=== PATIENT | female | born 1985 | race Caucasian/White ===

== ENCOUNTER 2017-03-29 15:09 | Emergency (ER) | payer MEDICAID ==
[~2017-03-29] VITALS: Ht 157.5 cm; Wt 81.6 kg
[2017-03-29] MEDS ORDERED: MELO15TA23 PO (15:59)
[2017-03-29] MEDS ORDERED: TRAM50TA PO (16:00)
[2017-03-29] MEDS ORDERED: PANT20TA2 PO (16:01)
[2017-03-29] MEDS ORDERED: GABA-586 PO (16:01)
[2017-03-29] MEDS ORDERED: DULO60CA6 PO (16:04)
[2017-03-29] MEDS ORDERED: PRAZ1CAP2 PO (16:05)
[2017-03-29] MEDS ORDERED: SUCR1TAB PO (16:07)
[2017-03-29 16:25] LABS: BASO % 1 % (0-3); EOS % 2 % (0-3); HEMATOCRIT 34.5 % (36.0-47.0); HEMOGLOBIN 11.7 g/dL (12.0-15.5); LYMPH # 1.5 x10^3/uL (1.0-4.8); LYMPH % 20 % (24-48); MEAN CORPUSCULAR HEMOGLOBIN 29 pg (25-35); MEAN CORPUSCULAR HGB CONC 34 g/dL (31-37); MEAN CORPUSCULAR VOLUME 84 fL (79-100); MONO % 7 % (0-9); NEUT % 70 % (31-73); PLATELET COUNT 358 x10^3/uL (140-400); RED BLOOD COUNT 4.09 x10^6/uL (3.50-5.40); RED CELL DISTRIBUTION WIDTH 14.7 % (11.5-14.5); WHITE BLOOD COUNT 7.7 x10^3/uL (4.0-11.0)
[2017-03-29 16:41] LABS: CALCIUM 8.8 mg/dL (8.5-10.1); CREATININE 0.8 mg/dL (0.6-1.0); GFR 84.8
[2017-03-29 16:54] LABS: ALBUMIN 3.3 g/dL (3.4-5.0); ALBUMIN/GLOBULIN RATIO 0.8 (1.0-1.7); TOTAL BILIRUBIN 0.4 mg/dL (0.2-1.0); TOTAL PROTEIN 7.2 g/dL (6.4-8.2)
--- NOTE | 2017-03-29 17:39 | RAD ---
Pelvic ultrasound to include transabdominal and transvaginal imaging 03/29/2017 CLINICAL HISTORY: Low abdominal pain with heavy vaginal bleeding. TECHNIQUE: Using the distended urinary bladder as a sonographic window, a real-time ultrasound examination of the pelvis was performed. Additionally in an attempt to better evaluate the uterus and adnexa, a transvaginal ultrasound study was performed. Multiple images were obtained. FINDINGS: The uterus is within normal limits in size. It measures 10.6 x 5.7 x 5.6 cm in longitudinal, transverse, and AP dimensions. The endometrial echo complex is prominent measuring 2.2 cm in thickness. It is slightly heterogeneous. No focal abnormality of the uterus is seen. The right ovary is normal in size. It measures 5.1 x 3.5 x 2.4 cm in size. A 1.5 cm dominant follicle seen within the right ovary. The left ovary is mildly enlarged. It measures 7.0 x 4.3 x 3.1 cm in size. Within the left ovary an oval-shaped anechoic structure with internal echoes is seen which measures 2.5 cm in greatest diameter. This likely represents a hemorrhagic cyst. A moderate amount of free fluid is seen within the pelvis. IMPRESSION: 2.5 cm probable hemorrhagic cyst within the left ovary. Moderate amount of free fluid is seen within the pelvis. Electronically signed by: Tien Collins MD (03/29/2017 5:36 PM) [facility]
[2017-03-29] MEDS ORDERED: fentaNYL PF VIAL 100 MCG/2 ML VIAL IV ONE (18:30)
[2017-03-29] MEDS ORDERED: ONDANSETRON PF 4 MG/2 ML VIAL. IV ONE (18:45)
[2017-03-29 18:46] VITALS: BP 144/90
--- NOTE | 2017-03-29 23:32 | PHYS DOC ---
Past Medical History Past Medical History: Anxiety, Arthritis, Fibromyalgia Additional Past Medical Histor: NEUROPATHY, THORACIC OUTLET SYNDROME Past Surgical History: Appendectomy, Cholecystectomy, Tubal ligation Additional Information: 0.5 PPD Alcohol Use: None Drug Use: None Adult General Chief Complaint Chief Complaint: VAGINAL BLEEDING HPI HPI Patient is a 31 year old [f__sex] who presents with [] Review of Systems Review of Systems Constitutional: Denies fever or chills [] Eyes: Denies change in visual acuity, redness, or eye pain [] HENT: Denies nasal congestion or sore throat [] Respiratory: Denies cough or shortness of breath [] Cardiovascular: No additional information not addressed in HPI [] GI: Denies abdominal pain, nausea, vomiting, bloody stools or diarrhea [] : Denies dysuria or hematuria [] Musculoskeletal: Denies back pain or joint pain [] Integument: Denies rash or skin lesions [] Neurologic: Denies headache, focal weakness or sensory changes [] Endocrine: Denies polyuria or polydipsia [] All other systems were reviewed and found to be within normal limits, except as documented in this note. Current Medications Current Medications Current Medications Medications (Trade) Dose Ordered Sig/Tegan Start Time Stop Time Status Last Admin Dose Admin Fentanyl Citrate (Fentanyl 2ml Vial) 50 mcg 1X ONCE 03/29/17 18:30 03/29/17 18:31 DC 03/29/17 18:39 50 MCG Ondansetron HCl (Zofran) 4 mg 1X ONCE 03/29/17 18:45 03/29/17 18:46 DC 03/29/17 18:38 4 MG Allergies Allergies Allergies Coded Allergies Type Severity Reaction Last Updated Verified adhesive tape Allergy Intermediate 03/29/17 Yes fluticasone Allergy Intermediate 03/29/17 Yes milnacipran Allergy Intermediate 03/29/17 Yes salmeterol Allergy Intermediate 03/29/17 Yes Physical Exam Physical Exam Constitutional: Well developed, well nourished, no acute distress, non-toxic appearance. [] HENT: Normocephalic, atraumatic, bilateral external ears normal, oropharynx moist, no oral exudates, nose normal. [] Eyes: PERRLA, EOMI, conjunctiva normal, no discharge. [] Neck: Normal range of motion, no tenderness, supple, no stridor. [] Cardiovascular:Heart rate regular rhythm, no murmur [] Lungs & Thorax: Bilateral breath sounds clear to auscultation [] Abdomen: Bowel sounds normal, soft, no tenderness, no masses, no pulsatile masses. [] Vaginal: External genitalia normal, blood in vault with closts. TTP. [] Back: No tenderness, no CVA tenderness. [] Extremities: No tenderness, no cyanosis, no clubbing, ROM intact, no edema. [] Neurologic: Alert and oriented X 3, normal motor function, normal sensory function, no focal deficits noted. [] Psychologic: Affect normal, judgement normal, mood normal. [] Current Patient Data Vital Signs Vital Signs Date Time Temp Pulse Resp B/P (MAP) Pulse Ox O2 Delivery O2 Flow Rate FiO2 03/29/17 18:46 80 18 144/90 (108) 99 Room Air 03/29/17 15:45 98.9 98.9 Lab Values Laboratory Tests Test 03/29/17 15:39 03/29/17 16:15 POC Urine HCG, Qualitative Hcg negative (Negative) White Blood Count 7.7 x10^3/uL (4.0-11.0) Red Blood Count 4.09 x10^6/uL (3.50-5.40) Hemoglobin 11.7 g/dL (12.0-15.5) L Hematocrit 34.5 % (36.0-47.0) L Mean Corpuscular Volume 84 fL (79-100) Mean Corpuscular Hemoglobin 29 pg (25-35) Mean Corpuscular Hemoglobin Concent 34 g/dL (31-37) Red Cell Distribution Width 14.7 % (11.5-14.5) H Platelet Count 358 x10^3/uL (140-400) Neutrophils (%) (Auto) 70 % (31-73) Lymphocytes (%) (Auto) 20 % (24-48) L Monocytes (%) (Auto) 7 % (0-9) Eosinophils (%) (Auto) 2 % (0-3) Basophils (%) (Auto) 1 % (0-3) Neutrophils # (Auto) 5.4 x10^3uL (1.8-7.7) Lymphocytes # (Auto) 1.5 x10^3/uL (1.0-4.8) Monocytes # (Auto) 0.6 x10^3/uL (0.0-1.1) Eosinophils # (Auto) 0.2 x10^3/uL (0.0-0.7) Basophils # (Auto) 0.0 x10^3/uL (0.0-0.2) Maternal Serum HCG Beta Subunit < 1 mIU/mL (0-5) Sodium Level 139 mmol/L (136-145) Potassium Level 4.0 mmol/L (3.5-5.1) Chloride Level 104 mmol/L (98-107) Carbon Dioxide Level 30 mmol/L (21-32) Anion Gap 5 (6-14) L Blood Urea Nitrogen 8 mg/dL (7-20) Creatinine 0.8 mg/dL (0.6-1.0) Estimated GFR (Cockcroft-Gault) 84.8 BUN/Creatinine Ratio 10 (6-20) Glucose Level 109 mg/dL (70-99) H Calcium Level 8.8 mg/dL (8.5-10.1) Total Bilirubin 0.4 mg/dL (0.2-1.0) Aspartate Amino Transferase (AST) 14 U/L (15-37) L Alanine Aminotransferase (ALT) 18 U/L (14-59) Alkaline Phosphatase 63 U/L (46-116) Total Protein 7.2 g/dL (6.4-8.2) Albumin 3.3 g/dL (3.4-5.0) L Albumin/Globulin Ratio 0.8 (1.0-1.7) L Laboratory Tests 03/29/17 16:15 Laboratory Tests 03/29/17 16:15 EKG EKG [] Radiology/Procedures Radiology/Procedures [Pelvic ultrasound hemorrhagic cyst with moderate blood in abdomen] Course & Med Decision Making Course & Med Decision Making Pertinent Labs and Imaging studies reviewed. (See chart for details) [Patient improved. Ultrasound findings lab work and reviewed in detail with Dr. Eng formulation scientist for [employer]. Recommendations are for discharge home, close office follow-up in 1-2 days. I discussed plan in detail with the patient is agreeable and comfortable with plan. I discussed with her need to return to the emergency department should she develop dizziness lightheadedness chest pain and shortness of breath. Patient verbalizes understanding agreement with discharge plans.] Dragon Disclaimer Dragon Disclaimer This electronic medical record was generated, in whole or in part, using a voice recognition dictation system. Departure Departure Impression: Primary Impression: Hemorrhagic cyst of left ovary Additional Impression: Vaginal bleeding Disposition: 01 HOME, SELF-CARE Condition: STABLE Referrals: NO PCP (PCP) CHRISTIAN ENG Jr, MD Patient Instructions: Ovarian Cyst, [id number] Additional Instructions: You were evaluated in the emergency department for pelvic pain and vaginal bleeding. Lab work and an ultrasound were obtained and show a bleeding ovarian cyst. Please to home and rest. Take ibuprofen for pain and hydrocodone as needed for additional relief. Contact Dr. Eng's office tomorrow morning and schedule follow-up appointment on Wednesday. In the meantime if you develop new or worsening symptoms, return to the emergency department. Problem Qualifiers ALDAIR ANDRADE DO Mar 29, 2017 23:32
[2017-03-31] MEDS ORDERED: OXYC-323 PO (09:17)
== END 2017-03-29 19:26 | disposition home or self-care (01) ==
LOC: ER 15:09
DX: N83.202 Unspecified ovarian cyst, left side (principal); N93.9 Abnormal uterine and vaginal bleeding, unspecified; M79.7 Fibromyalgia; G62.9 Polyneuropathy, unspecified; F41.9 Anxiety disorder, unspecified; F17.200 Nicotine dependence, unspecified, uncomplicated; Z90.49 Acquired absence of other specified parts of digestive tract; Z98.51 Tubal ligation status; Z88.8 Allergy status to other drugs, medicaments and biological substances
CPT/HCPCS: 36415; 76830; 76856; 80053; 81025; 84702; 85025; 96374; 96375; 99285; J2405; J3010

== ENCOUNTER 2017-03-30 11:39 | Inpatient (IN) | payer MEDICAID ==
[~2017-03-30] VITALS: Ht 157.5 cm; Wt 81.6 kg
[~2017-03-30 11:39] MED LIST: DULO60CA6 PO; GABA-586 PO; MELO15TA23 PO; PANT20TA2 PO; PRAZ1CAP2 PO; SUCR1TAB PO; TRAM50TA PO
[2017-03-30] MEDS ORDERED: IV NORMAL SALINE 1000ML BAG 1,000 ML IV ONE (12:15)
[2017-03-30 12:18] LABS: BASO # 0.1 x10^3/uL (0.0-0.2); BASO % 1 % (0-3); EOS % 2 % (0-3); LYMPH # 1.2 x10^3/uL (1.0-4.8); LYMPH % 17 % (24-48); MEAN CORPUSCULAR HEMOGLOBIN 28 pg (25-35); MEAN CORPUSCULAR HGB CONC 33 g/dL (31-37); MEAN CORPUSCULAR VOLUME 84 fL (79-100); MONO % 7 % (0-9); NEUT % 74 % (31-73); PLATELET COUNT 390 x10^3/uL (140-400); RED BLOOD COUNT 4.29 x10^6/uL (3.50-5.40); RED CELL DISTRIBUTION WIDTH 14.7 % (11.5-14.5); WHITE BLOOD COUNT 7.1 x10^3/uL (4.0-11.0)
[2017-03-30] MEDS: ONDANSETRON PF 4 MG/2 ML VIAL. IV PRN ×2 (12:20→13:48)
[2017-03-30] MEDS: HYDROmorphone 2 MG/ML VIAL IV PRN ×3 (12:21→15:59)
[2017-03-30 12:26] LABS: CALCIUM 8.9 mg/dL (8.5-10.1); CREATININE 0.8 mg/dL (0.6-1.0); GFR 84.8
[2017-03-30 12:31] LABS: ALBUMIN 3.4 g/dL (3.4-5.0); ALBUMIN/GLOBULIN RATIO 0.8 (1.0-1.7); TOTAL BILIRUBIN 0.3 mg/dL (0.2-1.0); TOTAL PROTEIN 7.9 g/dL (6.4-8.2)
--- NOTE | 2017-03-30 12:35 | PHYS DOC ---
Past Medical History Past Medical History: Anxiety, Arthritis, Fibromyalgia Additional Past Medical Histor: NEUROPATHY, THORACIC OUTLET SYNDROME Past Surgical History: Appendectomy, Cholecystectomy, Tubal ligation Alcohol Use: None Drug Use: None Adult General Chief Complaint Chief Complaint: PAIN CONTROL HPI HPI 31-year-old female presenting to the emergency department today with abdominal pain generally bilaterally in the lower abdomen. She was seen yesterday in our emergency department where she had blood work and ultrasound. Her ultrasound showed an ovarian hemorrhagic cyst. Plan the time of discharge was to follow-up with adjunct psychology instructor, today or tomorrow. She reports worsening pain not alleviated by her pain medications that were prescribed. She also had difficulty getting to the oncology clinic. Her pain in her lower abdomen as sharp intermittent nonradiating moderate associated with vaginal bleeding. Workup yesterday was negative for . Review of systems was negative for vomiting chest pain shortness of breath fevers chills headache confusion cyanosis lethargy numbness weakness or tingling. All other review of systems is negative unless otherwise noted in history of present illness. ED course: 31-year-old female presenting to the emergency pertinent today with bilateral lower abdominal pain recently diagnosed with hemorrhagic ovarian cyst. The emergency department the patient is afebrile with a normal heart rate on examination saturating well on room air. She is not in any distress during my history taking. Abdominal exam shows [id number] tenderness without rebound tenderness or guarding. Negative McBurney's point. Negative Smith sign. The patient has a history of a cholecystectomy and an appendectomy. IV fluids nausea and pain medications were administered. Blood work repeated. CT the abdomen pelvis obtained. The abdomen pelvis shows hemorrhagic cyst similar to previous ultrasound. On reexamination the patient is feeling better however I believe she will need more IV pain medication given her failure of outpatient therapy, she was admitted the hospital for further evaluation workup and care to Dr. Eng. Urine shows signs of urinary tract infection so IV Rocephin was given. I have assessed this patient clinically and believe that their condition requires an admission to the hospital. After consulting the admitting physician about this case, they have asked that I admit this patient to their service as an inpatient based on the clinical presentation and my impression. Review of Systems Review of Systems SEE ABOVE. Current Medications Current Medications Current Medications Medications (Trade) Dose Ordered Sig/Tegan Start Time Stop Time Status Last Admin Dose Admin Hydromorphone HCl (Dilaudid) 0.5 mg PRN Q1HR PRN 03/30/17 12:15 03/30/17 13:49 0.5 MG Info (Do NOT chart on this entry -- for MONITORING) 1 each PRN DAILY PRN 03/30/17 14:00 04/01/17 13:59 Iohexol (Omnipaque 300 Mg/ml) 75 ml 1X ONCE 03/30/17 14:00 03/30/17 14:01 DC 03/30/17 14:04 75 ML Ondansetron HCl (Zofran) 4 mg PRN Q30MIN PRN 03/30/17 12:15 03/30/17 13:49 DC 03/30/17 13:48 4 MG Sodium Chloride 1,000 ml @ 1,000 mls/hr 1X ONCE 03/30/17 12:15 03/30/17 13:14 DC 03/30/17 12:14 1,000 MLS/HR Allergies Allergies Allergies Coded Allergies Type Severity Reaction Last Updated Verified adhesive tape Allergy Intermediate 03/29/17 Yes fluticasone Allergy Intermediate 03/29/17 Yes milnacipran Allergy Intermediate 03/29/17 Yes salmeterol Allergy Intermediate 03/29/17 Yes Physical Exam Physical Exam SEE ABOVE Constitutional: Well developed, well nourished, no acute distress, non-toxic appearance. [] HENT: Normocephalic, atraumatic, bilateral external ears normal, oropharynx moist, no oral exudates, nose normal. [] Eyes: PERRLA, EOMI, conjunctiva normal, no discharge. [] Neck: Normal range of motion, no tenderness, supple, no stridor. [] Cardiovascular:Heart rate regular rhythm, no murmur [] Lungs & Thorax: Bilateral breath sounds clear to auscultation [ Abdomen: Soft abdomen without rebound tenderness or guarding present. Negative McBurneys point. Negative Smith sign. No ecchymosis present.SEE ABOVE Skin: Warm, dry, no erythema, no rash. [] Back: No tenderness, no CVA tenderness. [] Extremities: No tenderness, no cyanosis, no clubbing, ROM intact, no edema. [] Neurologic: Alert and oriented X 3, normal motor function, normal sensory function, no focal deficits noted. [] Psychologic: Affect normal, judgement normal, mood normal. [] Current Patient Data Vital Signs Vital Signs Date Time Temp Pulse Resp B/P (MAP) Pulse Ox O2 Delivery O2 Flow Rate FiO2 03/30/17 13:53 77 18 96 03/30/17 13:49 Room Air 03/30/17 11:45 98.9 114/69 (84) 98.9 Lab Values Laboratory Tests Test 03/30/17 12:00 03/30/17 12:40 White Blood Count 7.1 x10^3/uL (4.0-11.0) Red Blood Count 4.29 x10^6/uL (3.50-5.40) Hemoglobin 12.0 g/dL (12.0-15.5) Hematocrit 36.0 % (36.0-47.0) Mean Corpuscular Volume 84 fL (79-100) Mean Corpuscular Hemoglobin 28 pg (25-35) Mean Corpuscular Hemoglobin Concent 33 g/dL (31-37) Red Cell Distribution Width 14.7 % (11.5-14.5) H Platelet Count 390 x10^3/uL (140-400) Neutrophils (%) (Auto) 74 % (31-73) H Lymphocytes (%) (Auto) 17 % (24-48) L Monocytes (%) (Auto) 7 % (0-9) Eosinophils (%) (Auto) 2 % (0-3) Basophils (%) (Auto) 1 % (0-3) Neutrophils # (Auto) 5.2 x10^3uL (1.8-7.7) Lymphocytes # (Auto) 1.2 x10^3/uL (1.0-4.8) Monocytes # (Auto) 0.5 x10^3/uL (0.0-1.1) Eosinophils # (Auto) 0.1 x10^3/uL (0.0-0.7) Basophils # (Auto) 0.1 x10^3/uL (0.0-0.2) Sodium Level 139 mmol/L (136-145) Potassium Level 4.0 mmol/L (3.5-5.1) Chloride Level 102 mmol/L (98-107) Carbon Dioxide Level 29 mmol/L (21-32) Anion Gap 8 (6-14) Blood Urea Nitrogen 7 mg/dL (7-20) Creatinine 0.8 mg/dL (0.6-1.0) Estimated GFR (Cockcroft-Gault) 84.8 BUN/Creatinine Ratio 9 (6-20) Glucose Level 87 mg/dL (70-99) Calcium Level 8.9 mg/dL (8.5-10.1) Total Bilirubin 0.3 mg/dL (0.2-1.0) Aspartate Amino Transferase (AST) 16 U/L (15-37) Alanine Aminotransferase (ALT) 19 U/L (14-59) Alkaline Phosphatase 67 U/L (46-116) Total Protein 7.9 g/dL (6.4-8.2) Albumin 3.4 g/dL (3.4-5.0) Albumin/Globulin Ratio 0.8 (1.0-1.7) L Lipase 98 U/L (73-393) Urine Collection Type Unknown Urine Color Red Urine Clarity Turbid Urine pH 6.5 Urine Specific Shaw 1.020 Urine Protein mg/dL (NEG-TRACE) Urine Glucose (UA) Negative mg/dL (NEG) Urine Ketones (Stick) Negative mg/dL (NEG) Urine Blood Large (NEG) Urine Nitrite (NEG) Urine Bilirubin Negative (NEG) Urine Urobilinogen Dipstick 1.0 mg/dL (0.2 mg/dL) Urine Leukocyte Esterase Large (NEG) Urine RBC Tntc /HPF (0-2) Urine WBC 5-10 /HPF (0-4) Urine Squamous Epithelial Cells Few /LPF Urine Bacteria Many /HPF (0-FEW) Urine Test Negative (NEG) Laboratory Tests 03/30/17 12:00 Laboratory Tests 03/30/17 12:00 EKG EKG [] Radiology/Procedures Radiology/Procedures [] Course & Med Decision Making Course & Med Decision Making Pertinent Labs and Imaging studies reviewed. (See chart for details) [] Dragon Disclaimer Dragon Disclaimer This electronic medical record was generated, in whole or in part, using a voice recognition dictation system. Departure Departure Impression: Primary Impression: Abdominal pain Additional Impression: Hemorrhagic cyst of left ovary Disposition: ADMITTED INPATIENT Admitting Physician: Other (PEGHEE) Condition: STABLE Referrals: NO PCP (PCP) CHRISTIAN ENG Jr, MD Patient Instructions: Abdominal Pain Problem Qualifiers FELIPA GRAHAM MD Mar 30, 2017 12:34
[2017-03-30 13:00] LABS: PH,URINE 6.5
[2017-03-30 13:13] LABS: NEG OBC UR NEG; POS OBC UR POS
[2017-03-30 13:22] LABS: BILIRUBIN,URINE NEGATIVE (NEG); GLUCOSE,URINE NEGATIVE (NEG)
[2017-03-30 13:23] LABS: BACTERIA,URINE MANY /HPF (0-FEW); RBC,URINE TNTC /HPF (0-2); SQUAMOUS EPITHELIAL CELL,UR FEW /LPF
[2017-03-30] MEDS ORDERED: CONTRAST GIVEN MC PRN (14:00)
[2017-03-30] MEDS ORDERED: IOHEXOL 300 MG/ML 100ML VIAL. IV ONE (14:00)
--- NOTE | 2017-03-30 14:35 | RAD ---
CT abdomen and pelvis with contrast Indication: SEVERE LOW ABD PAIN, RUPTURED OVARIAN CYST RECENTLY DIAGNOSED, [id number] 75ML, NO PRIORS. . Technique: Intravenous contrast is given. No oral contrast as per request. Comparison:Ultrasound of the pelvis March 29. Exposure: One or more of the following individualized dose reduction techniques were utilized for this examination: 1. Automated exposure control 2. Adjustment of the mA and/or kV according to patient size 3. Use of iterative reconstruction technique. FINDINGS: Lower thorax: Lung bases are clear. Pneumoperitoneum:No gross pneumoperitoneum. Liver: Unremarkable Spleen: Unremarkable Pancreas: Unremarkable Adrenals:No evidence of mass. Kidneys:Unremarkable Gallbladder: Surgically absent. Aorta: Abdominal aorta is nonaneurysmal Lymph nodes: No significant enlargement GI tract: No bowel obstruction. No paracolonic inflammation. Appendix: Not visualized. Ascites: Mild free pelvic fluid. This measures slightly above water density, 27 Hounsfield units, could indicate some hemorrhagic or proteinaceous content. There is a poorly defined low-density area posterolateral to the left aspect of the uterus, measuring 27 mm, could represent an ovarian cyst in a posterior adnexa. There is a surgical clip or suture adjacent to this. Urinary bladder is unopacified and not distended limiting evaluation. IMPRESSION: 1. Mild pelvic free fluid, with evidence of hemorrhagic or proteinaceous content. Possible etiology is a ruptured cyst. 2. There is a poorly defined low-density area adjacent and adjacent to the left posterior uterus, could represent an ovarian cyst. This also measure slightly greater than water density suggesting hemorrhagic or proteinaceous content. Electronically signed by: Rick Mcintyre MD (03/30/2017 2:32 PM) [id number]
[2017-03-30] MEDS ORDERED: MORPHINE SULFATE 2 MG/ML DISP.SYRIN. IV PRN (15:45)
[2017-03-30] MEDS ORDERED: ONDANSETRON PF 4 MG/2 ML VIAL. IV PRN (15:45)
[2017-03-30] MEDS: IV NORMAL SALINE 1000ML BAG 1,000 ML IV SCH (15:57)
[2017-03-30 16:30] VITALS: BP 118/80
[2017-03-30] MEDS ORDERED: IBUPROFEN 800 MG TABLET. PO PRN (17:15)
[2017-03-30] MEDS ORDERED: oxyCODONE/APAP 5/325 1 TAB TABLET PO PRN (17:15)
[2017-03-30] MEDS ORDERED: DOCUSATE SODIUM 100 MG CAPSULE. PO PRN (17:45)
[2017-03-30] MEDS: oxyCODONE/APAP 5/325 1 TAB TABLET PO PRN ×2 (17:45→21:16)
[2017-03-30 21:15] VITALS: BP 115/73
[2017-03-31 01:40] VITALS: BP 112/52
[2017-03-31] MEDS: IV NORMAL SALINE 1000ML BAG 1,000 ML IV SCH (01:49)
[2017-03-31 04:42] LABS: BASO # 0.1 x10^3/uL (0.0-0.2); BASO % 1 % (0-3); EOS % 5 % (0-3); HEMOGLOBIN 9.2 g/dL (12.0-15.5); LYMPH # 1.9 x10^3/uL (1.0-4.8); LYMPH % 34 % (24-48); MEAN CORPUSCULAR HEMOGLOBIN 28 pg (25-35); MEAN CORPUSCULAR HGB CONC 33 g/dL (31-37); MEAN CORPUSCULAR VOLUME 85 fL (79-100); MONO % 10 % (0-9); NEUT % 50 % (31-73); PLATELET COUNT 291 x10^3/uL (140-400); RED BLOOD COUNT 3.31 x10^6/uL (3.50-5.40); RED CELL DISTRIBUTION WIDTH 14.8 % (11.5-14.5); WHITE BLOOD COUNT 5.5 x10^3/uL (4.0-11.0)
[2017-03-31 05:07] LABS: CALCIUM 8.2 mg/dL (8.5-10.1); CREATININE 0.8 mg/dL (0.6-1.0); GFR 84.8; POTASSIUM 3.8 mmol/L (3.5-5.1)
[2017-03-31 06:22] VITALS: BP 98/52
[2017-03-31 09:00] VITALS: BP 101/58
[2017-03-31] MEDS ORDERED: FLU VACC QS2017-18 (36MOS+)/PF 0.5 ML SYRINGE. VAX IM ONE (09:00)
--- NOTE | 2017-03-31 09:16 | PDOC1 ---
History and Physical Date of Admission Date of Admission DATE: 03/31/17 TIME: 09:12 Identification/Chief Complaint Chief Complaint abd pain Problems: Source Source: Chart review, Patient History of Present Illness History of Present Illness 31 y/o A2 presented to ED for second time for pelvic pain due to ruptured ovarian cyst. Hgb is stable. Pt. admitted for pain control. She has surgical h/o BTL, appendectomy and cholecystectomy. Counseled on ovarian cysts and management. Past Medical History Cardiovascular: No pertinent hx Pulmonary: No pertinent hx GI: No pertinent hx Heme/Onc: No pertinent hx Hepatobiliary: No pertinent hx Psych: No pertinent hx Rheumatologic: No pertinent hx Infectious disease: No pertinent hx ENT: No pertinent hx Renal/: No pertinent hx Past Surgical History Past Surgical History: Appendectomy, Cholecystectomy, Tubal Ligation Current Problem List Problem List Problems Medical Problems: (1) Abdominal pain Status: Acute (2) Hemorrhagic cyst of left ovary Status: Acute Problems: Current Medications Current Medications Current Medications Hydromorphone HCl (Dilaudid) 0.5 mg PRN Q1HR PRN IV SEVERE PAIN Last administered on 03/30/17 15:59; Start 03/30/17 at 12:15; Stop 03/30/17 at 16 :00; Status DC Ondansetron HCl (Zofran) 4 mg PRN Q30MIN PRN IV NAUSEA/VOMITING Last administered on 03/30/17 13:48; Start 03/30/17 at 12:15; Stop 03/30/17 at 13 :49; Status DC Sodium Chloride 1,000 ml @ 1,000 mls/hr 1X ONCE IV Last administered on 03/30 12:14; Start 03/30/17 at 12:15; Stop 03/30/17 at 13:14; Status DC Iohexol (Omnipaque 300 Mg/ml) 75 ml 1X ONCE IV Last administered on 14:04; Start 03/30/17 at 14:00; Stop 03/30/17 at 14:01; Status DC Info (Do NOT chart on this entry -- for MONITORING) 1 each PRN DAILY PRN MC SEE COMMENTS; Start 03/30/17 at 14:00; Stop 04/01/17 at 13:59 Ondansetron HCl (Zofran) 4 mg PRN Q8HRS PRN IV NAUSEA/VOMITING; Start at 15:45; Stop 03/31/17 at 15:44 Morphine Sulfate 2 mg PRN Q2HR PRN IV PAIN; Start 03/30/17 at 15:45; Stop at 15:44 Sodium Chloride 1,000 ml @ 100 mls/hr Q10H IV Last administered on 03/31/17 01:49; Start 03/30/17 at 15:41; Stop 03/31/17 at 15:40 Ceftriaxone Sodium 50 ml @ 100 mls/hr 1X ONCE IV Last administered on 16:00; Start 03/30/17 at 16:00; Stop 03/30/17 at 16:29; Status DC Ibuprofen (Motrin) 800 mg PRN Q8HRS PRN PO INFLAMMATION Last administered on 21:16; Start 03/30/17 at 17:15 Oxycodone/ Acetaminophen (Percocet 5/325) 1 tab PRN Q4HRS PRN PO PAIN Last administered on 03/30/17 21:16; Start 03/30/17 at 17:15 Oxycodone/ Acetaminophen (Percocet 5/325) 2 tab PRN Q4HRS PRN PO PAIN; Start 03/30/17 at 17:15 Ceftriaxone Sodium 1 gm/ Dextrose 50 ml @ 100 mls/hr Q24H IV ; Start 03/30/17 at 17:15; Status UNV Ceftriaxone Sodium (Rocephin) 1 gm Q24H IVP ; Start 03/31/17 at 15:00 Docusate Sodium (Colace) 100 mg PRN BID PRN PO CONSTIPATION Last administered on 03/30/17 21:15; Start 03/30/17 at 17:45 Influenza Virus Vaccine Quadrival (Fluarix Quad [id number] Syringe) 0.5 ml ONCE ONCE VAX IM ; Start 03/31/17 at 09:00; Stop 03/31/17 at 09:01; Status DC Active Scripts Active Reported Sucralfate 1 Gm Tablet 1 Tab PO QID Prazosin Hcl 1 Mg Capsule 1 Cap PO QHS Cymbalta (Duloxetine Hcl) 60 Mg Capsule.dr 60 Mg PO DAILY Protonix (Pantoprazole Sodium) 20 Mg Tablet.dr 1 Tab PO DAILY Gabapentin 300 Mg Capsule 300 Mg PO TID Tramadol Hcl 50 Mg Tablet 50 Mg PO Q6H PRN Meloxicam 15 Mg Tablet 1 Tab PO DAILY Allergies Allergies: Coded Allergies: adhesive tape (Verified Allergy, Intermediate, 03/29/17) fluticasone (Verified Allergy, Intermediate, 03/29/17) milnacipran (Verified Allergy, Intermediate, 03/29/17) salmeterol (Verified Allergy, Intermediate, 03/29/17) ROS General: YES: Appetite, No: Chills, Night Sweats, Fatigue, Malaise, Other PSYCHOLOGICAL ROS: No: Anxiety, Behavioral Disorder, Concentration difficultie , Decreased libido, Depression, Disorientation, Hallucinations, Hostility, Irritablity, Memory difficulties, Mood Swings, Obsessive thoughts, Physical abuse, Sexual abuse, Sleep disturbances, Suicidal ideation, Other Eyes: No Blurry vision, No Decreased vision, No Double vision, No Dry eyes, No Excessive tearing, No Eye Pain, No Itchy Eyes, No Loss of vision, No Photophobia , No Scotomata, No Uses contacts, No Uses glasses, No Other HEENT: No: Heacaches, Visual Changes, Hearing change, Nasal congestion, Nasal discharge, Oral lesions, Sinus pain, Sore Throat, Epistaxis, Sneezing, Snoring, Tinnitus, Vertigo, Vocal changes, Other ALLERGY AND IMMUNOLOGY: No: Hives, Insect Bite Sensitivity, Itchy/Watery Eyes, Nasal Congestion, Post Nasal Drip, Seasonal Allergies, Other Hematological and Lymphatic: No: Bleeding Problems, Blood Clots, Blood Transfusions, Brusing, Night Sweats, Pallor, Swollen Lymph Nodes, Other ENDOCRINE: No: Breast Changes, Galactorrhea, Hair Pattern Changes, Hot Flashes , Malaise/lethargy, Mood Swings, Palpitations, Polydipsia/polyuria, Skin Changes , Temperature Intolerance, Unexpected Weight Changes, Other Breast: No New/Changing Breast Lumps, No Nipple changes, No Nipple discharge, No Other Respiratory: No: Cough, Hemoptysis, Orthopnea, Pleuritic Pain, Shortness of breath, SOB with excertion, Sputum Changes, Stridor, Tachypnea, Wheezing, Other Cardiovascular: No Chest Pain, No Palpitations, No Orthopnea, No Paroxysmal Noc. Dyspnea, No Edema, No Lt Headedness, No Other Gastrointestinal: Yes Abdominal Pain, No Nausea, No Vomiting, No Diarrhea, No Constipation, No Melena, No Hematochezia, No Other Genitourinary: No Dysuria, No Frequency, No Incontinence, No Hematuria, No Retention, No Discharge, No Urgency, No Pain, No Flank Pain, No Other, No , No , No , No , No , No , No Musculoskeletal: No Gait Disturbance, No Joint Pain, No Joint Stiffness, No Joint Swelling, No Muscle Pain, No Muscular Weakness, No Pain In:, No Swelling In:, No Other Neurological: No Behavorial Changes, No Bowel/Bladder ControlChng, No Confusion , No Dizziness, No Gait Disturbance, No Headaches, No Impaired Coord/balance, No Memory Loss, No Numbness/Tingling, No Seizures, No Speech Problems, No Tremors, No Visual Changes, No Weakness, No Other Physical Exam General: Alert, Oriented X3, Cooperative HEENT: Atraumatic Lungs: Clear to auscultation Heart: S1S2 Breasts: Normal Abdomen: Normal bowel sounds, Soft, No masses, Other (mild diffuse tenderness. No rebound tenderness or surgical abdomen.) Psych/Mental Status: Mental status NL Vitals Vitals Vital Signs Date Time Temp Pulse Resp B/P (MAP) Pulse Ox O2 Delivery O2 Flow Rate FiO2 03/31/17 06:22 97.8 54 20 98/52 (67) 98 Room Air 97.8 Labs Labs Laboratory Tests Test 03/30/17 12:00 03/30/17 12:40 03/31/17 04:35 White Blood Count 7.1 x10^3/uL (4.0-11.0) 5.5 x10^3/uL (4.0-11.0) Red Blood Count 4.29 x10^6/uL (3.50-5.40) 3.31 x10^6/uL (3.50-5.40) Hemoglobin 12.0 g/dL (12.0-15.5) 9.2 g/dL (12.0-15.5) Hematocrit 36.0 % (36.0-47.0) 28.0 % (36.0-47.0) Mean Corpuscular Volume 84 fL (79-100) 85 fL (79-100) Mean Corpuscular Hemoglobin 28 pg (25-35) 28 pg (25-35) Mean Corpuscular Hemoglobin Concent 33 g/dL (31-37) 33 g/dL (31-37) Red Cell Distribution Width 14.7 % (11.5-14.5) 14.8 % (11.5-14.5) Platelet Count 390 x10^3/uL (140-400) 291 x10^3/uL (140-400) Neutrophils (%) (Auto) 74 % (31-73) 50 % (31-73) Lymphocytes (%) (Auto) 17 % (24-48) 34 % (24-48) Monocytes (%) (Auto) 7 % (0-9) 10 % (0-9) Eosinophils (%) (Auto) 2 % (0-3) 5 % (0-3) Basophils (%) (Auto) 1 % (0-3) 1 % (0-3) Neutrophils # (Auto) 5.2 x10^3uL (1.8-7.7) 2.8 x10^3uL (1.8-7.7) Lymphocytes # (Auto) 1.2 x10^3/uL (1.0-4.8) 1.9 x10^3/uL (1.0-4.8) Monocytes # (Auto) 0.5 x10^3/uL (0.0-1.1) 0.5 x10^3/uL (0.0-1.1) Eosinophils # (Auto) 0.1 x10^3/uL (0.0-0.7) 0.3 x10^3/uL (0.0-0.7) Basophils # (Auto) 0.1 x10^3/uL (0.0-0.2) 0.1 x10^3/uL (0.0-0.2) Sodium Level 139 mmol/L (136-145) 140 mmol/L (136-145) Potassium Level 4.0 mmol/L (3.5-5.1) 3.8 mmol/L (3.5-5.1) Chloride Level 102 mmol/L (98-107) 107 mmol/L (98-107) Carbon Dioxide Level 29 mmol/L (21-32) 30 mmol/L (21-32) Anion Gap 8 (6-14) 3 (6-14) Blood Urea Nitrogen 7 mg/dL (7-20) 9 mg/dL (7-20) Creatinine 0.8 mg/dL (0.6-1.0) 0.8 mg/dL (0.6-1.0) Estimated GFR (Cockcroft-Gault) 84.8 84.8 BUN/Creatinine Ratio 9 (6-20) Glucose Level 87 mg/dL (70-99) 89 mg/dL (70-99) Calcium Level 8.9 mg/dL (8.5-10.1) 8.2 mg/dL (8.5-10.1) Total Bilirubin 0.3 mg/dL (0.2-1.0) Aspartate Amino Transf (AST/SGOT) 16 U/L (15-37) Alanine Aminotransferase (ALT/SGPT) 19 U/L (14-59) Alkaline Phosphatase 67 U/L (46-116) Total Protein 7.9 g/dL (6.4-8.2) Albumin 3.4 g/dL (3.4-5.0) Albumin/Globulin Ratio 0.8 (1.0-1.7) Lipase 98 U/L (73-393) Urine Collection Type Unknown Urine Color Red Urine Clarity Turbid Urine pH 6.5 Urine Specific Mcgregor 1.020 Urine Protein mg/dL (NEG-TRACE) Urine Glucose (UA) Negative mg/dL (NEG) Urine Ketones (Stick) Negative mg/dL (NEG) Urine Blood Large (NEG) Urine Nitrite (NEG) Urine Bilirubin Negative (NEG) Urine Urobilinogen Dipstick 1.0 mg/dL (0.2 mg/dL) Urine Leukocyte Esterase Large (NEG) Urine RBC Tntc /HPF (0-2) Urine WBC 5-10 /HPF (0-4) Urine Squamous Epithelial Cells Few /LPF Urine Bacteria Many /HPF (0-FEW) Urine Test Negative (NEG) Laboratory Tests Test 03/30/17 12:00 03/30/17 12:40 03/31/17 04:35 White Blood Count 7.1 x10^3/uL (4.0-11.0) 5.5 x10^3/uL (4.0-11.0) Red Blood Count 4.29 x10^6/uL (3.50-5.40) 3.31 x10^6/uL (3.50-5.40) Hemoglobin 12.0 g/dL (12.0-15.5) 9.2 g/dL (12.0-15.5) Hematocrit 36.0 % (36.0-47.0) 28.0 % (36.0-47.0) Mean Corpuscular Volume 84 fL (79-100) 85 fL (79-100) Mean Corpuscular Hemoglobin 28 pg (25-35) 28 pg (25-35) Mean Corpuscular Hemoglobin Concent 33 g/dL (31-37) 33 g/dL (31-37) Red Cell Distribution Width 14.7 % (11.5-14.5) 14.8 % (11.5-14.5) Platelet Count 390 x10^3/uL (140-400) 291 x10^3/uL (140-400) Neutrophils (%) (Auto) 74 % (31-73) 50 % (31-73) Lymphocytes (%) (Auto) 17 % (24-48) 34 % (24-48) Monocytes (%) (Auto) 7 % (0-9) 10 % (0-9) Eosinophils (%) (Auto) 2 % (0-3) 5 % (0-3) Basophils (%) (Auto) 1 % (0-3) 1 % (0-3) Neutrophils # (Auto) 5.2 x10^3uL (1.8-7.7) 2.8 x10^3uL (1.8-7.7) Lymphocytes # (Auto) 1.2 x10^3/uL (1.0-4.8) 1.9 x10^3/uL (1.0-4.8) Monocytes # (Auto) 0.5 x10^3/uL (0.0-1.1) 0.5 x10^3/uL (0.0-1.1) Eosinophils # (Auto) 0.1 x10^3/uL (0.0-0.7) 0.3 x10^3/uL (0.0-0.7) Basophils # (Auto) 0.1 x10^3/uL (0.0-0.2) 0.1 x10^3/uL (0.0-0.2) Sodium Level 139 mmol/L (136-145) 140 mmol/L (136-145) Potassium Level 4.0 mmol/L (3.5-5.1) 3.8 mmol/L (3.5-5.1) Chloride Level 102 mmol/L (98-107) 107 mmol/L (98-107) Carbon Dioxide Level 29 mmol/L (21-32) 30 mmol/L (21-32) Anion Gap 8 (6-14) 3 (6-14) Blood Urea Nitrogen 7 mg/dL (7-20) 9 mg/dL (7-20) Creatinine 0.8 mg/dL (0.6-1.0) 0.8 mg/dL (0.6-1.0) Estimated GFR (Cockcroft-Gault) 84.8 84.8 BUN/Creatinine Ratio 9 (6-20) Glucose Level 87 mg/dL (70-99) 89 mg/dL (70-99) Calcium Level 8.9 mg/dL (8.5-10.1) 8.2 mg/dL (8.5-10.1) Total Bilirubin 0.3 mg/dL (0.2-1.0) Aspartate Amino Transf (AST/SGOT) 16 U/L (15-37) Alanine Aminotransferase (ALT/SGPT) 19 U/L (14-59) Alkaline Phosphatase 67 U/L (46-116) Total Protein 7.9 g/dL (6.4-8.2) Albumin 3.4 g/dL (3.4-5.0) Albumin/Globulin Ratio 0.8 (1.0-1.7) Lipase 98 U/L (73-393) Urine Collection Type Unknown Urine Color Red Urine Clarity Turbid Urine pH 6.5 Urine Specific Mcgregor 1.020 Urine Protein mg/dL (NEG-TRACE) Urine Glucose (UA) Negative mg/dL (NEG) Urine Ketones (Stick) Negative mg/dL (NEG) Urine Blood Large (NEG) Urine Nitrite (NEG) Urine Bilirubin Negative (NEG) Urine Urobilinogen Dipstick 1.0 mg/dL (0.2 mg/dL) Urine Leukocyte Esterase Large (NEG) Urine RBC Tntc /HPF (0-2) Urine WBC 5-10 /HPF (0-4) Urine Squamous Epithelial Cells Few /LPF Urine Bacteria Many /HPF (0-FEW) Urine Test Negative (NEG) VTE Prophylaxis Ordered VTE Prophylaxis Devices: No VTE Pharmacological Prophylaxi: No Assessment/Plan Assessment/Plan A: Ovarian cyst: ruptured and stable Abd pain P: Observation for IV fluids and pain management. She feels much better this am and will f/u in clinic next week. CHRISTIAN GARCIA Jr, MD Mar 31, 2017 09:16
--- NOTE | 2017-03-31 09:16 | DISCH ---
DISCHARGE INSTRUCTIONS Condition on Discharge Condition on Discharge: Stable Activity After Discharge Activity Instructions for Disc: Activity as tolerated Lifting Instructions after Dis: No heavy lifting Driving Instructions after Dis: Do not drive today Diet after Discharge Diet after Discharge: Regular Contacting the DRMelo after DC Call your doctor for: Concerns you may have Follow-Up Follow up with: Dr. Eng in 1 week. HCRISTIAN ENG Jr, MD Mar 31, 2017 09:16
[2017-03-31] MEDS ORDERED: OXYC-323 PO (09:17)
[2017-03-31] MEDS ORDERED: cefTRIAXone IV Push 1 GM VIAL. IVP SCH (15:00)
== END 2017-03-31 10:11 | disposition home or self-care (01) | DRG 760 ==
LOC: ER 11:39 → 3 NORTH 16:04
PROVIDERS: ADMIT Obstetrics & Gynecology; ATTEND Obstetrics & Gynecology
DX: N83.202 Unspecified ovarian cyst, left side (principal); D62 Acute posthemorrhagic anemia; G54.0 Brachial plexus disorders; F41.9 Anxiety disorder, unspecified; M19.90 Unspecified osteoarthritis, unspecified site; M79.7 Fibromyalgia; Z90.49 Acquired absence of other specified parts of digestive tract; Z98.51 Tubal ligation status; Z88.8 Allergy status to other drugs, medicaments and biological substances; Z91.048 Other nonmedicinal substance allergy status
CPT/HCPCS: 36415; 74177; 80048; 80053; 81001; 81025; 83690; 85025; 87086; 90686; 96361; 96374; 96375; 96376; J0690; J1170; J2405; J7030; Q9967; 99285-25

== ENCOUNTER 2017-07-06 23:22 | Emergency (ER) | payer MEDICAID ==
[2017-07-06] MEDS: HYDROcodone/APAP 5/325MG 1 TAB TABLET PO (23:42)
== END 2017-07-06 23:48 | disposition home or self-care (01) ==
LOC: ER 23:22
DX: S02.5XXA Fracture of tooth (traumatic), initial encounter for closed fracture (principal); F41.9 Anxiety disorder, unspecified; M79.7 Fibromyalgia; M19.90 Unspecified osteoarthritis, unspecified site; G62.9 Polyneuropathy, unspecified; G54.0 Brachial plexus disorders; Z90.49 Acquired absence of other specified parts of digestive tract; Z98.51 Tubal ligation status; Z88.8 Allergy status to other drugs, medicaments and biological substances; Z91.048 Other nonmedicinal substance allergy status; X58.XXXA Exposure to other specified factors, initial encounter; Y93.89 Activity, other specified; Y92.89 Other specified places as the place of occurrence of the external cause; Y99.8 Other external cause status
CPT/HCPCS: 99283

== ENCOUNTER 2020-01-08 20:28 | Emergency (ER) | payer BC, MEDICAID ==
[~2020-01-08] VITALS: Ht 157.5 cm; Wt 100.0 kg
[~2020-01-08 20:28] MED LIST changes: +AMOX500C PO; -GABA-586 PO; +GABA300C18 PO; +HYDR-3164 PO; +OXYC1TAB15 PO
[2020-01-08 20:54] VITALS: BP 132/69
[2020-01-08] MEDS ORDERED: SULF1TAB24 PO (21:12)
--- NOTE | 2020-01-08 21:12 | PHYS DOC ---
Past Medical History Past Medical History: Anxiety, Arthritis, Fibromyalgia Additional Past Medical Histor: NEUROPATHY, THORACIC OUTLET SYNDROME Past Surgical History: Appendectomy, Cholecystectomy, Tubal ligation Smoking Status: Current Every Day Smoker Alcohol Use: None Drug Use: None General Adult EDM: Chief Complaint: ABSCESS HPI: HPI: Patient is a 34 year old female with history of fibromyalgia, axilla abscesses, who presents today complaining of axilla abscess for 5 days, patient denies any drainage from the area. Denies any fever. Review of Systems: Review of Systems: Constitutional: Denies fever or chills. [] Musculoskeletal: Denies back pain or joint pain. [] Integument: Reports right axilla abscess Neurologic: Denies headache, focal weakness or sensory changes. [] Psychiatric: Denies depression or anxiety. [] Heart Score: Risk Factors: Risk Factors: DM, Current or recent (<one month) smoker, HTN, HLP, family history of CAD, obesity. Risk Scores: Score 0 - 3: 2.5% MACE over next 6 weeks - Discharge Home Score 4 - 6: 20.3% MACE over next 6 weeks - Admit for Clinical Observation Score 7 - 10: 72.7% MACE over next 6 weeks - Early Invasive Strategies Current Medications: Current Medications Medications (Trade) Dose Ordered Sig/Tegan Start Time Stop Time Status Last Admin Dose Admin Acetaminophen/ Hydrocodone Bitart (Lortab 5/325) 2 tab 1X ONCE 01/08/20 21:30 01/08/20 21:31 Ceftriaxone Sodium (Rocephin Im) 1 gm 1X ONCE 01/08/20 21:30 01/08/20 21:31 Lidocaine HCl (Xylocaine-Mpf 1% 2ml Vial) 2 ml 1X ONCE 01/08/20 21:30 01/08/20 21:31 Allergies: Allergies: Allergies Coded Allergies Type Severity Reaction Last Updated Verified adhesive tape Allergy Intermediate 03/29/17 Yes fluticasone Allergy Intermediate 03/29/17 Yes milnacipran Allergy Intermediate 03/29/17 Yes salmeterol Allergy Intermediate 03/29/17 Yes Physical Exam: PE: Constitutional: Well developed, well nourished, no acute distress, non-toxic appearance. [] Skin: Right axilla with an indurated area approximately 2 x 0.5 cm. The area feels very firm, there is no fluctuance, the area is tender to touch. Slight erythema over the region. Back: No tenderness, no CVA tenderness. [] Extremities: No tenderness, no cyanosis, no clubbing, ROM intact, no edema. [] Neurologic: Alert and oriented X 3, normal motor function, normal sensory fu nction, no focal deficits noted. [] Psychologic: Affect normal, judgement normal, mood normal. [] EKG: EKG: [] Radiology/Procedures: Radiology/Procedures: [] Course & Med Decision Making: Course & Med Decision Making Pertinent Labs and Imaging studies reviewed. (See chart for details) Patient has an abscess on the right axilla. Spoke to patient about draining this, she states she prefers a general surgeon to do it. Provided information on general surgery follow-up. Discharged on Bactrim. Shaquille Disclaimer: Shaquille Disclaimer: This electronic medical record was generated, in whole or in part, using a voice recognition dictation system. Departure Departure Impression: Primary Impression: Abscess of right axilla Disposition: HOME, SELF-CARE Condition: STABLE Referrals: NO PCP (PCP) LIZBETH AG MD follow up in one week Patient Instructions: Abscess, [id number] Additional Instructions: You have an abscess to the right axilla. Please contact the provided general surgeon tomorrow and set up an outpatient follow-up appointment. Apply warm compresses to the area. Take the prescribed antibiotics until completed. Scripts Sulfamethoxazole/Trimethoprim (BACTRIM DS TABLET) 1 Each Tablet 1 TAB PO BID for 10 Days, #20 TAB 0 Refills Prov: ISABELL NAVARRETE APRN 01/08/20 Justicifation of Admission Dx: Justifications for Admission: Justification of Admission Dx: N/A ISABELL NAVARRETE APRN Jan 08, 2020 21:12
[2020-01-08] MEDS ORDERED: LIDOCAINE 1% PF 2 ML VIAL. INJ ONE (21:30)
[2020-01-08] MEDS ORDERED: HYDROcodone/APAP 5/325MG 1 TAB TABLET PO ONE (21:30)
[2020-01-08] MEDS ORDERED: cefTRIAXone IM 1 GM VIAL IM ONE (21:30)
== END 2020-01-08 21:37 | disposition home or self-care (01) ==
LOC: ER 20:28
DX: L02.411 Cutaneous abscess of right axilla (principal); F41.9 Anxiety disorder, unspecified; M19.90 Unspecified osteoarthritis, unspecified site; M79.7 Fibromyalgia; F17.200 Nicotine dependence, unspecified, uncomplicated; Z90.89 Acquired absence of other organs; Z90.49 Acquired absence of other specified parts of digestive tract; Z98.51 Tubal ligation status; Z88.8 Allergy status to other drugs, medicaments and biological substances
CPT/HCPCS: 96372; 99284; J0696; J3490; 10060; 99283